=== PATIENT | male | born 1975 | race Asian ===

== ENCOUNTER 2022-09-11 11:23 | Emergency (ER) | payer BC ==
[~2022-09-11] VITALS: Ht 182.9 cm; Wt 95.3 kg
[2022-09-11 12:30] LABS: PLATELET COUNT 277 K/uL (142-355)
[2022-09-11 12:36] LABS: POTASSIUM 4.6 mmol/L (3.6-5.2)
[2022-09-11 13:21] VITALS: BP 155/93
== END 2022-09-11 13:34 | disposition home or self-care (01) ==
LOC: ED 11:23
PROVIDERS: Emergency Medicine
DX: I10 Essential (primary) hypertension (principal)
CPT/HCPCS: 80053; 81002; 84484; 85027; 93005; 99283